=== PATIENT | male | born 1930 | race Caucasian/White ===

== ENCOUNTER 2017-10-31 21:36 | Inpatient (IN) | payer OTHER, MEDICARE ==
[~2017-10-31] VITALS: Ht 177.8 cm; Wt 80.3 kg
[~2017-10-31 21:36] MED LIST: ASPI81TA11 PO; ATOR10TA PO; CO Q100C9 PO; COUM1TAB PO; FLUO10TA PO; PACE200T4 PO; PRIN5TAB PO; TOPR50TA PO
[2017-10-31 22:03] VITALS: BP 151/69; PULSE 60; RESP 16; TEMP 98.2; O2SAT 96
--- NOTE | 2017-10-31 22:08 | PD ---
HPI Chief Complaint: Chest Pain Time Seen by Provider: 22:01 Travel History International Travel<30 days: No Contact w/Intl Traveler<30days: No Traveled to known affect area: No History of Present Illness HPI 87-year-old male with PMH of CAD s/p CABG presents to the ED for evaluation of 5 /10 central chest pain. Onset just before arrival after the patient ate a bowl of ice cream. Lasted 10-30 seconds, resolves spontaneously. Resolved on presentation. He denies associated diaphoresis, nausea, vomiting, shortness of breath, palpitations. He endorses taking a baby aspirin daily. He was administered aspirin by the paramedics en route. He states that prior to this incident he was feeling well. He denies recent history of fever, chills, cold symptoms, abdominal pain, nausea, vomiting, dysuria, weakness. PFSH Past Medical History Anxiety: Yes Cerebrovascular Accident: Yes Coronary Artery Disease: Yes Hypertension: Yes Respiratory: Yes (PE'S) Past Surgical History Appendectomy: Yes Tonsillectomy: Yes Other Surgery: Yes (OPEN HEART) Social History Alcohol Use: No Tobacco Use: No Substance Use: No Allergies-Medications (Allergen,Severity, Reaction): Coded Allergies: No Known Allergies (Unverified Adverse Reaction, Unknown, 10/31/17) Reported Meds & Prescriptions Reported Meds & Active Scripts Active Reported Rapaflo (Silodosin) 8 Mg Cap 8 Mg PO DAILY Lisinopril 10 Mg Tab 10 Mg PO DAILY Atorvastatin (Atorvastatin Calcium) 10 Mg Tab 10 Mg PO HS Aspirin 81 Mg Chew 81 Mg CHEW DAILY Omeprazole 40 Mg Cap 40 Mg PO DAILY Metoprolol Tartrate 25 Mg Tab 25 Mg PO DAILY Review of Systems Except as stated in HPI: all other systems reviewed are Neg Physical Exam Narrative GENERAL: Well-nourished, well-developed white male in no acute distress. SKIN: Focused skin assessment warm/dry. HEAD: Normocephalic. EYES: No scleral icterus. No injection or drainage. NECK: Supple, trachea midline. No JVD or lymphadenopathy. CARDIOVASCULAR: Regular rate and rhythm without murmurs, gallops, or rubs. RESPIRATORY: Breath sounds clear and equal bilaterally. No accessory muscle use. GASTROINTESTINAL: Abdomen soft, non-tender, nondistended. Active bowel sounds. MUSCULOSKELETAL: No cyanosis, or edema. BACK: Nontender without obvious deformity. No CVA tenderness. Data Data Last Documented VS Vital Signs Date Time Temp Pulse Resp B/P (MAP) Pulse Ox O2 Delivery O2 Flow Rate FiO2 10/31/17 22:05 60 18 96 Nasal Cannula 2.00 10/31/17 22:03 98.2 151/69 (96) Orders Orders Electrocardiogram (10/31/17 22:06) B-Type Natriuretic Peptide (10/31/17 22:06) Ckmb (Isoenzyme) Profile (10/31/17 22:06) Complete Blood Count With Diff (10/31/17 22:06) Comprehensive Metabolic Panel (10/31/17 22:06) Magnesium (Mg) (10/31/17 22:06) Prothrombin Time / Inr (Pt) (10/31/17 22:06) Act Partial Throm Time (Ptt) (10/31/17 22:06) Troponin I (10/31/17 22:06) Ecg Monitoring (10/31/17 22:06) Bilateral Bp Monitoring (10/31/17 22:06) Iv Access Insert/Monitor (10/31/17 22:) Oximetry (10/31/17 22:06) Oxygen Administration (10/31/17 22:06) Sodium Chloride 0.9% Flush (Ns Flush) (10/31/17 22:15) Chest, Pa & Lat (10/31/17 22:06) MDM Medical Decision Making Medical Screen Exam Complete: Yes Emergency Medical Condition: Yes Differential Diagnosis chest pain versus GERD versus ACS versus other Narrative Course 87-year-old male with PMH of CAD s/p CABG presents to the ED for evaluation of 5 /10 central chest pain. Onset just before arrival after the patient ate a bowl of ice cream. Lasted 10-30 seconds, resolved spontaneously. NO associated diaphoresis, nausea, vomiting, shortness of breath, palpitations. He endorses taking a baby aspirin daily. He was administered aspirin by the paramedics en route. He states that prior to this incident he was feeling well. Pulse 60, BP 151/69 presentation. On exam this is a nontoxic-appearing white male in no acute distress. No appreciable M/R/G. No tenderness to palpation over the precordium. Abdomen soft and nontender. No lower extremity edema. EKG, radiological studies, lab work ordered and pending. The patient is signed out to Dr. Fuchs at end of shift. Please see his note for disposition. Niharika Mc Oct 31, 2017 22:07
[2017-10-31] MEDS ORDERED: ASPI-516 CHEW (22:13)
[2017-10-31] MEDS ORDERED: LISI10TA3 PO (22:13)
[2017-10-31] MEDS ORDERED: RAPA8CAP PO (22:13)
[2017-10-31] MEDS ORDERED: ATOR10TA15 PO (22:13)
[2017-10-31] MEDS ORDERED: OMEP40CA2 PO (22:13)
[2017-10-31] MEDS ORDERED: METO25TA3 PO (22:13)
[2017-10-31] MEDS ORDERED: ASPIRIN 81 MG CHEW TAB PO ONE (22:15)
[2017-10-31] MEDS ORDERED: SODIUM CHLORIDE 0.9% FLUSH 10 ML FLUSH IVF PRN (22:15)
--- NOTE | 2017-10-31 22:50 | RADRPT ---
EXAM DATE/TIME: 10/31/2017 22:32 [facility] COMPARISON: No previous studies available for comparison. INDICATIONS : Chest pain and short of breath. MEDICAL HISTORY : None. SURGICAL HISTORY : None. ENCOUNTER: Initial ACUITY: 1 day PAIN SCORE: 5/10 LOCATION: Bilateral chest FINDINGS: PA and lateral views of the chest demonstrate the lungs to be symmetrically aerated without evidence of mass, infiltrate or effusion. No evidence of pneumothorax. The cardiomediastinal contours are un remarkable. Osseous structures are intact. Median sternotomy and CABG with 6 intact sternal wire dave tures. CONCLUSION: The lungs are clear. Benitez Gates MD on October 31, 2017 at 22:48 Board Certified Radiologist. This report was verified electronically.
[2017-10-31 23:57] LABS: AUTOMATED NEUTROPHIL # 8.9 TH/MM3 (1.8-7.7); BASOPHIL % 0.3 % (0.0-2.0); EOSINOPHIL # 0.1 TH/MM3 (0-0.4); EOSINOPHIL % 1.1 % (0.0-4.0); HEMATOCRIT 38.8 % (39.0-51.0); HEMOGLOBIN 13.1 GM/DL (13.0-17.0); LYMPH % 9.5 % (9.0-44.0); MEAN CORPUSCULAR HEMOGLOBIN 31.1 PG (27.0-34.0); MEAN CORPUSCULAR HGB CONC 33.8 % (32.0-36.0); MEAN PLATELET VOLUME 9.1 FL (7.0-11.0); MONOCYTE # 0.4 TH/MM3 (0-0.9); NEUT % 85.1 % (16.0-70.0); PLATELET COUNT 143 TH/MM3 (150-450); RED BLOOD COUNT 4.21 MIL/MM3 (4.50-5.90); RED CELL DISTRIBUTION WIDTH 14.7 % (11.6-17.2); WHITE BLOOD COUNT 10.5 TH/MM3 (4.0-11.0)
[2017-11-01 00:09] LABS: ALBUMIN 3.2 GM/DL (3.4-5.0); ALT (GPT) 400 U/L (12-78); AST (GOT) 595 U/L (15-37); BICARBONATE 26.6 MEQ/L (21.0-32.0); BLOOD UREA NITROGEN 20 MG/DL (7-18); CHLORIDE 107 MEQ/L (98-107); CREATININE 1.31 MG/DL (0.60-1.30); GLOMERULAR FILTRATION RATE 52 ML/MIN (>89); GLUCOSE,RANDOM 107 MG/DL (74-106); MAGNESIUM 2.1 MG/DL (1.5-2.5); SODIUM (NA) 141 MEQ/L (136-145)
[2017-11-01 00:13] LABS: ALKALINE PHOSPHATASE 172 U/L (45-117); TOTAL PROTEIN 7.2 GM/DL (6.4-8.2); TROPONIN I 0.03 NG/ML (0.02-0.05)
[2017-11-01 00:23] LABS: INTERNATIONAL NORMALIZED RATIO 1.1 RATIO; PROTHROMBIN TIME - PATIENT 10.7 SEC (9.8-11.6)
--- NOTE | 2017-11-01 01:50 | RADRPT ---
EXAM DATE/TIME: 11/01/2017 01:35 [facility] COMPARISON: No previous studies available for comparison. INDICATIONS : Nausea. ORAL CONTRAST: No oral contrast ingested. RADIATION DOSE: 8.82 CTDIvol (mGy) MEDICAL HISTORY : Cardiovascular disease. Hypertension. SURGICAL HISTORY : CABG Appendectomy. ENCOUNTER: Initial ACUITY: 1 day PAIN SCALE: 0/10 LOCATION: Bilateral abdomen TECHNIQUE: Volumetric scanning of the abdomen and pelvis was performed. Using automated exposure control and ad justment of the mA and/or kV according to patient size, radiation dose was kept as low as reasonably achievable to obtain optimal diagnostic quality images. DICOM format image data is available electro nically for review and comparison. FINDINGS: LOWER LUNGS: There is dependent atelectasis at the lung bases. A partially calcified 4 mm pulmonary nodule is pres ent in the right lower lobe. LIVER: Homogeneous density without lesion. There is no dilation of the biliary tree. No calcified gallston es. SPLEEN: Normal size without lesion. PANCREAS: Within normal limits. KIDNEYS: Right kidney is atrophic. There is no hydronephrosis, stone, or mass. ADRENAL GLANDS: Within normal limits. VASCULAR: There is severe atherosclerotic disease with severe calcification in the proximal renal arteries bila terally. Coronary artery calcification is present along with severe calcification of the mitral annul us. BOWEL/MESENTERY: The stomach, small bowel, and colon demonstrate no acute abnormality. A diverticulum arises from the proximal fourth portion of the duodenum. There is sigmoid diverticulosis. Prior surgery has been per formed in the ascending colon with area of anastomosis have a normal appearance. There is no free int raperitoneal air or fluid. ABDOMINAL WALL: No acute abnormality. RETROPERITONEUM: There is no lymphadenopathy. BLADDER: No wall thickening or mass. REPRODUCTIVE: Prostate gland is enlarged. INGUINAL: There is no lymphadenopathy or hernia. MUSCULOSKELETAL: There are degenerative changes of the lumbar spine with mild scoliosis. CONCLUSION: 1. No acute finding is identified to explain the clinical symptoms. 2. Nonacute findings include small hiatal hernia, atrophic right kidney, sigmoid diverticulosis, and severe atherosclerotic disease and coronary artery calcification. 3. There is a 4 mm pulmonary nodule in the right lower lobe. Oracio Medrano MD on November 01, 2017 at 1:43 Board Certified Radiologist. This report was verified electronically.
[2017-11-01 02:05] VITALS: BP 165/77; PULSE 65; RESP 18; O2SAT 98
--- NOTE | 2017-11-01 03:29 | RADRPT ---
EXAM DATE/TIME: 11/01/2017 03:12 [facility] COMPARISON: No previous studies available for comparison. INDICATIONS : Syncope. RADIATION DOSE: 66.34 CTDIvol (mGy) MEDICAL HISTORY : Hypertension. Cardiovascular disease Stroke. SURGICAL HISTORY : Appendectomy. ENCOUNTER: Initial ACUITY: 1 day PAIN SCALE: 0/10 LOCATION: cranial TECHNIQUE: Multiple contiguous axial images were obtained of the head. Using automated exposure control and adj ustment of the mA and/or kV according to patient size, radiation dose was kept as low as reasonably a chievable to obtain optimal diagnostic quality images. DICOM format image data is available electro nically for review and comparison. FINDINGS: CEREBRUM: There is generalized atrophy. Ventricles are normal in size given degree of atrophy. There is severe periventricular white matter low attenuation. Encephalomalacia is present in the right occipital lobe . No evidence of midline shift, mass lesion, hemorrhage or acute infarction. No extra-axial fluid c ollections are seen. POSTERIOR FOSSA: The cerebellum and brainstem demonstrate no acute finding. The 4th ventricle is midline. The cerebe llopontine angle is unremarkable. EXTRACRANIAL: Visualized sinuses are clear. SKULL: The calvaria is intact. No evidence of skull fracture. CONCLUSION: 1. No acute intracranial abnormality is identified. 2. Chronic changes include generalized atrophy and severe periventricular white matter low attenuatio n characteristic of chronic microvascular ischemia. There is encephalomalacia in the right occipital lobe. Oracio Medrano MD on November 01, 2017 at 3:25 Board Certified Radiologist. This report was verified electronically.
[2017-11-01] MEDS ORDERED: HEPARIN-D5W 25,000 U/250 ML 250 ML IV PRN (04:00)
[2017-11-01] MEDS ORDERED: ONDANSETRON HCL 4 MG/2 ML VIAL IV PUSH PRN (04:00)
[2017-11-01] MEDS ORDERED: SODIUM CHLORIDE 0.9% FLUSH 10 ML FLUSH IV FLUSH PRN (04:00)
[2017-11-01] MEDS ORDERED: ACETAMINOPHEN 325 MG TAB PO PRN (04:00)
[2017-11-01] MEDS ORDERED: HEPARIN SODIUM - IV 10,000 UNITS/10 ML VIAL IV PUSH ONE (04:00)
[2017-11-01] MEDS ORDERED: MORPHINE SULFATE 2 MG/ML INJ IV PUSH PRN (04:15)
--- NOTE | 2017-11-01 04:17 | HHI.HP ---
[facility] Unknown Admission Diagnosis near syncope and LFT abnl Diagnoses: Travel History International Travel<30 Days: No Contact w/Intl Traveler <30 Da: No Traveled to Known Affected Are: No History of Present Illness 87-year-old male with a past medical history significant for coronary artery disease, hypertension, hyperlipidemia, GERD and anxiety presents to the emergency department via EMS for evaluation of confusion, agitation and chest pain. The patient's states that the patient awoke from sleep and requested a cup of coffee. He then returned to his bedroom where he oscillated between the bed in the chair in an agitated fashion. During that time the patient's reports that he was hyperventilating and appeared to be confused. He had a 2-3 second episode of shaking throughout his entire body that was not followed by confusion. The patient's daughter reports that he return to baseline within 5 minutes. Upon further questioning, the patient states that he had a 20 minute episode of substernal, nonradiating chest pain/ pressure. He states that his chest pain is now resolved. He endorses accompanying shortness of breath. Denies nausea/vomiting/diarrhea. Denies any lateralizing signs/symptoms. Review of Systems Except as stated in HPI: all other systems reviewed are Neg Past Family Social History Past Medical History CAD Hypertension Hyperlipidemia GERD Anxiety History of CVA during CABG Past Surgical History CABG 3 AVR Reported Medications Reported Meds & Active Scripts Active Reported Rapaflo (Silodosin) 8 Mg Cap 8 Mg PO DAILY Lisinopril 10 Mg Tab 10 Mg PO DAILY Atorvastatin (Atorvastatin Calcium) 10 Mg Tab 10 Mg PO HS Aspirin 81 Mg Chew 81 Mg CHEW DAILY Omeprazole 40 Mg Cap 40 Mg PO DAILY Metoprolol Tartrate 25 Mg Tab 25 Mg PO DAILY Allergies: Coded Allergies: No Known Allergies (Unverified Allergy, Unknown, 11/01/17) Family History Negative for CAD/DM Social History Rare alcohol. Denies tobacco. Denies illicit drugs. Physical Exam Vital Signs Vital Signs Date Time Temp Pulse Resp B/P (MAP) Pulse Ox O2 Delivery O2 Flow Rate FiO2 3/8/18 02:05 65 18 165/77 (106) 98 Nasal Cannula 2.00 10/31/17 22:05 60 18 96 Nasal Cannula 2.00 10/31/17 22:03 98.2 60 16 151/69 (96) 96 Physical Exam GENERAL: male sitting up in bed SKIN: No rashes, ecchymoses or lesions. Cool and dry. HEAD: Atraumatic. Normocephalic. No temporal or scalp tenderness. EYES: Pupils equal round and reactive. Extraocular motions intact. No scleral icterus. No injection or drainage. ENT: Nose without bleeding, purulent drainage or septal hematoma. Throat without erythema, tonsillar hypertrophy or exudate. Uvula midline. Airway patent. NECK: Trachea midline. No JVD or lymphadenopathy. Supple, nontender, no meningeal signs. CARDIOVASCULAR: Regular rate and rhythm without murmurs, gallops, or rubs. RESPIRATORY: Clear to auscultation. Breath sounds equal bilaterally. No wheezes , rales, or rhonchi. GASTROINTESTINAL: Abdomen soft, non-tender, nondistended. No hepato-splenomegaly , or palpable masses. No guarding. MUSCULOSKELETAL: Extremities without clubbing, cyanosis, or edema. No joint tenderness, effusion, or edema noted. No calf tenderness. NEUROLOGICAL: Awake and alert. Cranial nerves II through XII intact. Motor and sensory grossly within normal limits. Normal speech. Laboratory Laboratory Tests Test 10/31/17 22:45 11/01/17 02:00 White Blood Count 10.5 Red Blood Count 4.21 Hemoglobin 13.1 Hematocrit 38.8 Mean Corpuscular Volume 92.0 Mean Corpuscular Hemoglobin 31.1 Mean Corpuscular Hemoglobin Concent 33.8 Red Cell Distribution Width 14.7 Platelet Count 143 Mean Platelet Volume 9.1 Neutrophils (%) (Auto) 85.1 Lymphocytes (%) (Auto) 9.5 Monocytes (%) (Auto) 4.0 Eosinophils (%) (Auto) 1.1 Basophils (%) (Auto) 0.3 Neutrophils # (Auto) 8.9 Lymphocytes # (Auto) 1.0 Monocytes # (Auto) 0.4 Eosinophils # (Auto) 0.1 Basophils # (Auto) 0.0 CBC Comment DIFF FINAL Differential Comment Prothrombin Time 10.7 Prothromb Time International Ratio 1.1 Activated Partial Thromboplast Time 21.5 Blood Urea Nitrogen 20 Creatinine 1.31 Random Glucose 107 Total Protein 7.2 Albumin 3.2 Calcium Level 8.0 Magnesium Level 2.1 Alkaline Phosphatase 172 Aspartate Amino Transf (AST/SGOT) 595 Alanine Aminotransferase (ALT/SGPT) 400 Total Bilirubin 1.0 Sodium Level 141 Potassium Level 3.9 Chloride Level 107 Carbon Dioxide Level 26.6 Anion Gap 7 Estimat Glomerular Filtration Rate 52 Total Creatine Kinase 70 Troponin I 0.03 0.06 B-Type Natriuretic Peptide 235 Result Diagram: 10/31/17224410/31/172244 Caprini VTE Risk Assessment Caprini VTE Risk Assessment: Mod/High Risk (score >= 2) Caprini Risk Assessment Model Point Value = 1 Point Value = 2 Point Value = 3 Point Value = 5 Age 41-60 Minor surgery BMI > 25 kg/m2 Swollen legs Varicose veins or History of unexplained or recurrent spontaneous Oral contraceptives or hormone replacement Sepsis (< 1 month) Serious lung disease, including pneumonia (< 1 month) Abnormal pulmonary function Acute myocardial infarction Congestive heart failure (< 1 month) History of inflammatory bowel disease Medical patient at bed rest Age 61-74 Arthroscopic surgery Major open surgery (> 45 min) Laparoscopic surgery (> 45 min) Malignancy Confined to bed (> 72 hours) Immobilizing plaster cast Central venous access Age >= 75 History of VTE Family history of VTE Factor V Leiden Prothrombin [id number] Lupus anticoagulant Anticardiolipin antibodies Elevated serum homocysteine Heparin-induced thrombocytopenia Other congenital or acquired thrombophilia Stroke (< 1 month) Elective arthroplasty Hip, pelvis, or leg fracture Acute spinal cord injury (< 1 month) Prophylaxis Regimen Total Risk Factor Score Risk Level Prophylaxis Regimen 0-1 Low Early ambulation 2 Moderate Order ONE of the following: *Sequential Compression Device (SCD) *Heparin 5000 units SQ BID 3-4 Higher Order ONE of the following medications: *Heparin 5000 units SQ TID *Enoxaparin/Lovenox 40 mg SQ daily (WT < 150 kg, CrCl > 30 mL/min) *Enoxaparin/Lovenox 30 mg SQ daily (WT < 150 kg, CrCl > 10-29 mL/min) *Enoxaparin/Lovenox 30 mg SQ BID (WT < 150 kg, CrCl > 30 mL/min) AND/OR *Sequential Compression Device (SCD) 5 or more Highest Order ONE of the following medications: *Heparin 5000 units SQ TID (Preferred with Epidurals) *Enoxaparin/Lovenox 40 mg SQ daily (WT < 150 kg, CrCl > 30 mL/min) *Enoxaparin/Lovenox 30 mg SQ daily (WT < 150 kg, CrCl > 10-29 mL/min) *Enoxaparin/Lovenox 30 mg SQ BID (WT < 150 kg, CrCl > 30 mL/min) AND *Sequential Compression Device (SCD) Assessment and Plan Assessment and Plan Assessment/plan: 1. NSTEMI Initial troponin 0.03, repeat 0.06 Patient with 20 minute episode of chest pain EKG Heparin bolus and drip Serial troponin/EKGs Cardiology consulted, appreciate recommendations Morphine Continue home beta adrián 2. Transaminitis Patient with elevated LFTs, no previous history CT of the abdomen/pelvis with no acute findings or cirrhosis/fatty liver Liver ultrasound pending Hepatitis profile pending Repeat CMP in the a.m. 3. Agitation/confusion Likely related to NSTEMI CT head negative for acute process Monitor Vision with some confusion at baseline 4. CONNIE Creatinine 1.31, no baseline for comparison Likely chronic component Monitor renal function 5. Hypertension/hyperlipidemia/GERD Continue home medications FEN NPO Electrolytes: Monitor and replete when necessary Heparin ggt Physician Certification 2 Midnight Certification Type: Admission for Inpatient Services Order for Inpatient Services The services are ordered in accordance with Medicare regulations or non- Medicare payer requirements, as applicable. In the case of services not specified as inpatient-only, they are appropriately provided as inpatient services in accordance with the 2-midnight benchmark. Estimated LOS (days): 2 2 days is the estimated time the patient will need to remain in the hospital, assuming treatment plan goals are met and no additional complications. Post-Hospital Plan: Not yet determined Nhung Gamble MD Nov 01, 2017 04:17
--- NOTE | 2017-11-01 04:29 | PD ---
Physical Exam Date Seen by Provider: Oct 31, 2017 Time Seen by Provider: 23:00 Narrative Patient is signed out to me by the prior provider I reviewed patient's labs patient's urine all are within normal limits however patient has an elevation of his LFTs which are very significant for 400 & [address] to search for a cause of his elevated LFTs but at scan does not show any cirrhosis does not show any gallstones this does not show any gallbladder disease. Patient's troponin is 0.03 I admit him to the hospitalist group for further evaluation of his LFTs along with his history of having had a stroke not too long ago post CABG 3 years ago. Tonight it describes a sensation of pain in his chest followed by a brief syncopal episode while sitting in the bed according to his . In the ER patient has recovered and has no symptoms at this time however patient is admitted for further evaluation of his LFTs chest pain is brief syncopal episode Data Data Last Documented VS Vital Signs Date Time Temp Pulse Resp B/P (MAP) Pulse Ox O2 Delivery O2 Flow Rate FiO2 11/01/17 02:05 65 18 165/77 (106) 98 Nasal Cannula 2.00 10/31/17 22:03 98.2 Orders Orders Electrocardiogram (10/31/17 22:06) B-Type Natriuretic Peptide (10/31/17 22:06) Ckmb (Isoenzyme) Profile (10/31/17 22:06) Complete Blood Count With Diff (10/31/17 22:06) Comprehensive Metabolic Panel (10/31/17 22:06) Magnesium (Mg) (10/31/17 22:06) Prothrombin Time / Inr (Pt) (10/31/17 22:06) Act Partial Throm Time (Ptt) (10/31/17 22:06) Troponin I (10/31/17 22:06) Ecg Monitoring (10/31/17 22:06) Bilateral Bp Monitoring (10/31/17 22:06) Iv Access Insert/Monitor (10/31/17 22:06) Oximetry (10/31/17 22:06) Oxygen Administration (10/31/17 22:06) Sodium Chloride 0.9% Flush (Ns Flush) (10/31/17 22:15) Chest, Pa & Lat (10/31/17 22:06) Ct Abd/Pel W/O Iv Contrast (11/01/17 ) Aspirin Chew (Aspirin Chew) (11/01/17 09:00) Troponin I (11/01/17 02:33) Ct Brain W/O Iv Contrast(Rout) (11/01/17 ) Us Abdomen Gallbladder (11/01/17 ) Admit Order (Ed Use Only) (11/01/17 02:33) Labs Laboratory Tests Test 10/31/17 22:45 11/01/17 02:00 White Blood Count 10.5 TH/MM3 Red Blood Count 4.21 MIL/MM3 Hemoglobin 13.1 GM/DL Hematocrit 38.8 % Mean Corpuscular Volume 92.0 FL Mean Corpuscular Hemoglobin 31.1 PG Mean Corpuscular Hemoglobin Concent 33.8 % Red Cell Distribution Width 14.7 % Platelet Count 143 TH/MM3 Mean Platelet Volume 9.1 FL Neutrophils (%) (Auto) 85.1 % Lymphocytes (%) (Auto) 9.5 % Monocytes (%) (Auto) 4.0 % Eosinophils (%) (Auto) 1.1 % Basophils (%) (Auto) 0.3 % Neutrophils # (Auto) 8.9 TH/MM3 Lymphocytes # (Auto) 1.0 TH/MM3 Monocytes # (Auto) 0.4 TH/MM3 Eosinophils # (Auto) 0.1 TH/MM3 Basophils # (Auto) 0.0 TH/MM3 CBC Comment DIFF FINAL Differential Comment Prothrombin Time 10.7 SEC Prothromb Time International Ratio 1.1 RATIO Activated Partial Thromboplast Time 21.5 SEC Blood Urea Nitrogen 20 MG/DL Creatinine 1.31 MG/DL Random Glucose 107 MG/DL Total Protein 7.2 GM/DL Albumin 3.2 GM/DL Calcium Level 8.0 MG/DL Magnesium Level 2.1 MG/DL Alkaline Phosphatase 172 U/L Aspartate Amino Transf (AST/SGOT) 595 U/L Alanine Aminotransferase (ALT/SGPT) 400 U/L Total Bilirubin 1.0 MG/DL Sodium Level 141 MEQ/L Potassium Level 3.9 MEQ/L Chloride Level 107 MEQ/L Carbon Dioxide Level 26.6 MEQ/L Anion Gap 7 MEQ/L Estimat Glomerular Filtration Rate 52 ML/MIN Total Creatine Kinase 70 U/L Troponin I 0.03 NG/ML 0.06 NG/ML B-Type Natriuretic Peptide 235 PG/ML MDM Supervised Visit with RENATO: Yes Differential Diagnosis Differential diagnosis includes GERD versus cholecystitis versus SD versus esophagitis versus pancreatitis versus liver disease Narrative Course Patient is worked up for his liver with a CAT scan no findings to explain his LFTs elevated his cardiac enzymes are 0.03 they'll be repeated 3 hour and 6 hour he is admitted. Been given 2 baby aspirins to chew and repeat troponin is due to 3 hours after the first he is admitted to telemetry Diagnosis Primary Impression: Elevated liver enzymes Additional Impression: Syncopal episodes Qualified Codes: R55 - Syncope and collapse Admitting Information Admitting Physician Requests: Observation Ever Fuchs MD Nov 01, 2017 04:29
[2017-11-01 04:56] VITALS: BP 150/73; PULSE 69; RESP 18; O2SAT 98
[2017-11-01 05:21] LABS: PROTHROMBIN TIME - PATIENT 10.6 SEC (9.8-11.6)
[2017-11-01 05:41] LABS: TROPONIN I 0.07 NG/ML (0.02-0.05)
[2017-11-01 07:59] VITALS: BP 189/88; PULSE 80; RESP 17; TEMP 98.1; O2SAT 98
[2017-11-01] MEDS: SODIUM CHLORIDE 0.9% FLUSH 10 ML FLUSH IV FLUSH SCH ×2 (08:05→21:03)
[2017-11-01] MEDS ORDERED: LISINOPRIL 10 MG TAB PO SCH ×2 (09:00→21:00)
[2017-11-01] MEDS ORDERED: METOPROLOL TARTRATE 25 MG TAB PO SCH (09:00)
[2017-11-01] MEDS ORDERED: TAMSULOSIN HCL 0.4 MG CAP PO SCH ×2 (09:00→21:00)
--- NOTE | 2017-11-01 09:17 | HHI.PR ---
Subjective Remarks Follow up NSTEMI, elevated LFTs. Patient had 15-20 minute episode of chest pressure last night. No chest pain/pressure at this time. Denies dyspnea. States that he feels much better. Objective Vitals Vital Signs Date Time Temp Pulse Resp B/P (MAP) Pulse Ox O2 Delivery O2 Flow Rate FiO2 11/01/17 07:59 80 17 98 Room Air 11/01/17 07:59 98.1 80 17 189/88 (121) 98 Room Air 11/01/17 04:56 69 18 150/73 (98) 98 Room Air 11/01/17 02:05 65 18 165/77 (106) 98 Nasal Cannula 2.00 10/31/17 22:05 60 18 96 Nasal Cannula 2.00 10/31/17 22:03 98.2 60 16 151/69 (96) 96 Result Diagram: 10/31/17 2245 10/31/17 2245 Imaging Last Impressions Head CT 11/01/17 0000 Signed Impressions: Service Date/Time: October 03:12 - CONCLUSION: 1. No acute intracranial abnormality is identified. 2. Chronic changes include generalized atrophy and severe periventricular white matter low attenuation characteristic of chronic microvascular ischemia. There is encephalomalacia in the right occipital lobe. Oracio Medrano MD Abdomen/Pelvis CT 11/01/17 0000 Signed Impressions: Service Date/Time: October 01:35 - CONCLUSION: 1. No acute finding is identified to explain the clinical symptoms. 2. Nonacute findings include small hiatal hernia, atrophic right kidney, sigmoid diverticulosis, and severe atherosclerotic disease and coronary artery calcification. 3. There is a 4 mm pulmonary nodule in the right lower lobe. Oracio Medrano MD Chest X-Ray 10/31/176 Signed Impressions: Service Date/Time: Tuesday, October 31, 2017 22:32 - CONCLUSION: The lungs are clear. Benitez Gates MD Objective Remarks General: Elderly male in no acute distress. Heart: Regular rate and rhythm. 1/6 murmur. Lungs: Clear to auscultation bilaterally. No wheezes, rales, or rhonchi. Breathing is nonlabored. Abdomen: Soft, nontender, nondistended. Extremities: No lower extremity edema. Psych: Alert, somewhat confused. Procedures None Urinary Catheter: No Vascular Central Line Catheter: No A/P Assessment and Plan 1. NSTEMI: Troponin trending up. Patient had a 15-20 minute episode of chest pressure, which resolved spontaneously. No active chest pain. Patient has been evaluated by cardiology. Nuclear stress test ordered. Continue aspirin, beta-adrián. On heparin drip. 2. Transaminitis: Patient has elevated LFTs. CT of the abdomen and pelvis is negative. Liver ultrasound pending. 3. Agitation/confusion: Likely related to non-ST elevation [place]. CT head negative. Patient apparently has some baseline confusion. 4. Acute kidney injury: No prior labs available for comparison. Monitor BUN and creatinine. 5. Hypertension: Continue home medications. 6. GERD: PPI. 7. DVT prophylaxis: Heparin drip. The patient's is at bedside and provides much of the history. 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 Reinier Cooley MD Nov 01, 2017 09:17
--- NOTE | 2017-11-01 09:21 | RADRPT ---
EXAM DATE/TIME: 11/01/2017 08:06 [facility] COMPARISON: No previous studies available for comparison. INDICATIONS : Gallstones. MEDICAL HISTORY : Hypertension. CVA. CAD. SURGICAL HISTORY : Appendectomy. Laminectomy. CABG. ENCOUNTER: Subsequent ACUITY: 1 day PAIN SCORE: 0/10 LOCATION: Right upper quadrant MEASUREMENTS: LIVER: 16.2 cm length COMMON DUCT: 5 mm RIGHT KIDNEY: 8.2 x 3.2 x 3.3 cm FINDINGS: LIVER: Normal echotexture without focal lesion or ductal dilatation. COMMON DUCT: No intraluminal mass or stone visualized. GALLBLADDER: Small non-shadowing non-mobile echogenic foci in the gallbladder neck. Gallbladder otherwise appears unremarkable without significant abnormal thickening pericholecystic fluid or sonographic Santamaria sign . PANCREAS: Partially obscured. RIGHT KIDNEY: Small size with diffuse cortical thinning. No evidence of hydronephrosis, stone, or mass. CONCLUSION: 1. Small gallbladder polyps versus non-shadowing adherent stones in the gallbladder neck. Gallbladder otherwise appears unremarkable by ultrasound. 2. Atrophic appearance of the right kidney similar to recent CT exam. Mejia Hardin MD on November 01, 2017 at 9:15 Board Certified Radiologist. This report was verified electronically.
[2017-11-01] MEDS ORDERED: PILL SPLITTER OTHER PRN (09:30)
--- NOTE | 2017-11-01 09:31 | MB ---
cc: Rafael De La Cruz MD DATE OF CONSULT: REASON FOR CONSULTATION: Chest pain. HISTORY OF PRESENT ILLNESS: The patient is an 87-year-old white male with a history of coronary artery disease, CVA, hypertension, pulmonary embolism who presented to the hospital with chest discomfort. After eating a bowl of ice cream, he developed band-like chest discomfort described as "pressure" without associated shortness of breath, nausea, or diaphoresis. The chest discomfort lasted about 30 minutes. He denies any other chest pains. He also denies pleurisy, dizziness, syncope, near-syncope, palpitations, pedal edema, paroxysmal nocturnal dyspnea, recent flu symptoms. PAST MEDICAL HISTORY: 1. Remote history of pulmonary embolism. 2. Hypertension. 3. CVA. 4. Coronary artery disease, status post 3-vessel bypass surgery a few years ago in [place], [place]. 5. History of bioprosthetic aortic valve replacement at the time of his bypass surgery. PAST SURGICAL HISTORY: 1. Tonsillectomy. 2. Appendectomy. 3. Coronary artery bypass grafting. CARDIAC MEDICATIONS AT HOME: Metoprolol tartrate 25 mg daily, aspirin 81 mg daily, atorvastatin 10 mg at bedtime, lisinopril 10 mg daily. ALLERGIES: NO KNOWN DRUG ALLERGIES. FAMILY HISTORY: Noncontributory. SOCIAL HISTORY: The patient denies any history of alcohol or tobacco abuse. REVIEW OF SYSTEMS: As in the history of present illness, otherwise negative or noncontributory. He also denies headache, abdominal pain, melena, dyspepsia, bright red blood per rectum, fevers, cough. PHYSICAL EXAMINATION: VITAL SIGNS: His blood pressure is 189/88 with a pulse of 80, respirations 17. GENERAL: He is a well-developed, well-nourished white male, in no acute distress. HEENT: Jugular venous pressure is normal. Carotid pulses are 2+ bilaterally and without bruits. CHEST: Reveals clear lung [place]. CARDIAC: He has a regular rhythm and rate with a grade II/ systolic ejection murmur heard best at the base of the heart. The S2 heart sound is normal. No gallop is audible. ABDOMEN: He has a soft, nontender abdomen. Bowel sounds are present. There is no definite hepatosplenomegaly. EXTREMITIES: Reveal no clubbing, cyanosis, or edema. LABORATORY DATA: Potassium 3.9, BUN 20, creatinine 1.31, AST 595, ALT 400, CK 70. Troponin 0.07. INR 1.0. WBC 10.5, hemoglobin 13.1, platelets 143. Chest x-ray shows no acute disease. EKG shows sinus bradycardia, voltage criteria for left ventricular hypertrophy, nonspecific T-wave abnormalities. IMPRESSION: Somewhat atypical chest pain in this 87-year-old white male with a history of coronary artery disease, status post bypass surgery a few years ago, history of cerebrovascular accident, history of pulmonary embolism, hypertension, hyperlipidemia, aortic valve replacement. CK is negative for myocardial infarction. Electrocardiogram shows nonspecific changes. The troponin levels are only minimally elevated, this in the sitting of some renal insufficiency. The patient denies any other chest pains except for that single episode last night. Clinical suspicion for pulmonary embolism is low. RECOMMENDATIONS: 1. Check a Lexiscan nuclear stress test. Unless extensive or severe ischemia is demonstrated, would recommend medical therapy. 2. Continue his usual home cardiac regimen except would stop his statin in light of his abnormal liver function tests. Rafael De La Cruz MD G[facility]/TI , 08:50 AM , 09:29 AM MTDD
[2017-11-01] MEDS ORDERED: REGADENOSON INJ 0.4 MG/5 ML SYR ONE (10:10)
[2017-11-01] MEDS: ASPIRIN 81 MG CHEW TAB CHEW SCH (11:43)
[2017-11-01] MEDS: METOPROLOL SUCCINATE 25 MG EXTENDED RELEASE TAB PO SCH (11:44)
[2017-11-01] MEDS: PANTOPRAZOLE SOD 40 MG DELAYED RELEASE TAB PO SCH (11:44)
--- NOTE | 2017-11-01 11:46 | RADRPT ---
EXAM DATE/TIME: 11/01/2017 09:40 [facility] COMPARISON: No previous studies available for comparison. INDICATIONS : Mid chest pain for one day. Coronary artery disease. DOSE: 25.5 mCi Tc99m Myoview at stress. 8.8 mCi Tc99m Myoview at rest. 0.4 mg Lexiscan STRESS SYMPTOMS: Shortness of breath. EJECTION FRACTION: 56% MEDICAL HISTORY : Hypertension. Gastroesophageal reflux disease. SURGICAL HISTORY : CABG ENCOUNTER: Initial ACUITY: 1 day PAIN SCALE: 5/10 LOCATION: Midsternal chest TECHNIQUE: The patient underwent pharmacologic stress with infusion of prescribed dose. Continuous ECG tracing was monitored during stress. Gated SPECT imaging was performed after stress and conventional SPECT i maging was performed at rest. The examination was performed on a SPECT/CT scanner, both attenuation and non-corrected datasets were reviewed. FINDINGS: DISTRIBUTION: The maximum perfused segment at stress is in the lateral wall. PERFUSION STUDY: The pattern of perfusion at stress is within normal limits. GATED STUDY: There is intact wall motion and thickening without hypokinetic or dyskinetic segments. CONCLUSION: Unremarkable myocardial perfusion exam RISK CATEGORY: Low López Gomez MD on November 01, 2017 at 11:44 Board Certified Radiologist. This report was verified electronically.
[2017-11-01 12:59] VITALS: BP 176/86; PULSE 72; RESP 15; TEMP 97.9; O2SAT 94
--- NOTE | 2017-11-01 13:04 | PD.CONS ---
HPI History of Present Illness This is a 87 year old male with hx CVA, colon ca s/p partial colectomy, CAD s/p aortic valve replacement and CABG who presented to ER after an episode of feeling cold, shivering, chest tightness. He has had a negative stress test. GI has been consulted for elevated LFTs. Denies abd pain, n/v, blood stool, black tarry stool, weight loss, jaundice. Denies hx liver problems. Denies significant ETOH consumption. He was taking atorvastatin. Had colonoscopy in [place] 5 y ago and no abnormal findings. He had EGD 1 y ago and no abnormal findings. Hx obtained primarily from EMR and , pt relatively noncontributory. (Maude Valdivia) PFSH Past Medical History CAD Hypertension Hyperlipidemia GERD Anxiety History of CVA during CABG Past Surgical History CABG 3 AVR (Maude Valdivia) Coded Allergies: No Known Allergies (Unverified Allergy, Unknown, 11/01/17) Family History Negative for CAD/DM Social History Rare alcohol. Denies tobacco. Denies illicit drugs. (Maude Valdivia) Review of Systems Constitutional: DENIES: Fever Endocrine: DENIES: Polydipsia Eyes: DENIES: Blurred vision Ears, nose, mouth, throat: DENIES: Hearing loss Respiratory: DENIES: Cough Cardiovascular: DENIES: Chest pain Gastrointestinal: DENIES: Abdominal pain, Black stools, Bloody stools, Nausea, Swelling of Abdomen Genitourinary: DENIES: Hematuria Musculoskeletal: DENIES: Joint Swelling Integumentary: DENIES: Jaundice Hematologic/lymphatic: DENIES: Bruising Immunologic/allergic: DENIES: Eczema Neurologic: DENIES: Headache Psychiatric: DENIES: Confusion (Maude Valdivia) GI Exam Vitals I&O Vital Signs Date Time Temp Pulse Resp B/P (MAP) Pulse Ox O2 Delivery O2 Flow Rate FiO2 11/01/17 07:59 80 17 98 Room Air 11/01/17 07:59 98.1 80 17 189/88 (121) 98 Room Air 11/01/17 04:56 69 18 150/73 (98) 98 Room Air 11/01/17 02:05 65 18 165/77 (106) 98 Nasal Cannula 2.00 10/31/17 22:05 60 18 96 Nasal Cannula 2.00 10/31/17 22:03 98.2 60 16 151/69 (96) 96 Imaging Last Impressions Myocardial Perfusion Scan Nuc Med 11/01/17 0000 Signed Impressions: Service Date/Time: October 09:40 - CONCLUSION: Unremarkable myocardial perfusion exam RISK CATEGORY: Low López Gomez MD Head CT 11/01/17 0000 Signed Impressions: Service Date/Time: October 03:12 - CONCLUSION: 1. No acute intracranial abnormality is identified. 2. Chronic changes include generalized atrophy and severe periventricular white matter low attenuation characteristic of chronic microvascular ischemia. There is encephalomalacia in the right occipital lobe. Oracio Medrano MD Gall Bladder Ultrasound 11/01/17 0000 Signed Impressions: Service Date/Time: October 08:06 - CONCLUSION: 1. Small gallbladder polyps versus non-shadowing adherent stones in the gallbladder neck. Gallbladder otherwise appears unremarkable by ultrasound. 2. Atrophic appearance of the right kidney similar to recent CT exam. Mejia Hardin MD Abdomen/Pelvis CT 11/01/17 0000 Signed Impressions: Service Date/Time: October 01:35 - CONCLUSION: 1. No acute finding is identified to explain the clinical symptoms. 2. Nonacute findings include small hiatal hernia, atrophic right kidney, sigmoid diverticulosis, and severe atherosclerotic disease and coronary artery calcification. 3. There is a 4 mm pulmonary nodule in the right lower lobe. Oracio Medrano MD Chest X-Ray 10/31/176 Signed Impressions: Service Date/Time: Tuesday, October 31, 2017 22:32 - CONCLUSION: The lungs are clear. Benitez Gates MD Laboratory Test 10/31/17 22:45 11/01/17 02:00 11/01/17 04:30 White Blood Count 10.5 TH/MM3 Red Blood Count 4.21 MIL/MM3 Hemoglobin 13.1 GM/DL Hematocrit 38.8 % Mean Corpuscular Volume 92.0 FL Mean Corpuscular Hemoglobin 31.1 PG Mean Corpuscular Hemoglobin Concent 33.8 % Red Cell Distribution Width 14.7 % Platelet Count 143 TH/MM3 Mean Platelet Volume 9.1 FL Neutrophils (%) (Auto) 85.1 % Lymphocytes (%) (Auto) 9.5 % Monocytes (%) (Auto) 4.0 % Eosinophils (%) (Auto) 1.1 % Basophils (%) (Auto) 0.3 % Neutrophils # (Auto) 8.9 TH/MM3 Lymphocytes # (Auto) 1.0 TH/MM3 Monocytes # (Auto) 0.4 TH/MM3 Eosinophils # (Auto) 0.1 TH/MM3 Basophils # (Auto) 0.0 TH/MM3 CBC Comment DIFF FINAL Differential Comment Prothrombin Time 10.7 SEC 10.6 SEC Prothromb Time International Ratio 1.1 RATIO 1.0 RATIO Activated Partial Thromboplast Time 21.5 SEC 19.9 SEC Blood Urea Nitrogen 20 MG/DL Creatinine 1.31 MG/DL Random Glucose 107 MG/DL Total Protein 7.2 GM/DL Albumin 3.2 GM/DL Calcium Level 8.0 MG/DL Magnesium Level 2.1 MG/DL Alkaline Phosphatase 172 U/L Aspartate Amino Transf (AST/SGOT) 595 U/L Alanine Aminotransferase (ALT/SGPT) 400 U/L Total Bilirubin 1.0 MG/DL Sodium Level 141 MEQ/L Potassium Level 3.9 MEQ/L Chloride Level 107 MEQ/L Carbon Dioxide Level 26.6 MEQ/L Anion Gap 7 MEQ/L Estimat Glomerular Filtration Rate 52 ML/MIN Total Creatine Kinase 70 U/L 72 U/L Troponin I 0.03 NG/ML 0.06 NG/ML 0.07 NG/ML B-Type Natriuretic Peptide 235 PG/ML Physical Examination HEENT: PERRL; normocephalic; atraumatic; no jaundice. CHEST: CTA CARDIAC: RRR ABDOMEN: Soft, protuberant, nontender; no hepatosplenomegaly; bowel sounds are present in all four quadrants. EXTREMITIES: No clubbing, cyanosis, or edema. SKIN: Normal; no rash; no jaundice. PUPPET MASTER: oriented to self and place (Maude Valdivia) Assessment and Plan Plan ASSESSMENT - elevated LFTs - unclear etiology. pt currently asymptomatic. hepatitis panel is pending. pt was on statin, this is held will get liver w/u. pt and very anxious to go home - atypical CP - stress test negative PLAN - liver w/u - rck LFTs in am - if LFTs not going up, he can be d/c tomorrow from GI standpoint - f/u in office with GI - heart healthy diet pt seen by myself and Dr Dwyer and this note is on his behalf (Maude Valdivia) Physician Comments Seen and examined, plan as above. Thank you for the consult. (Eli Dwyer MD) Maude Valdivia Nov 01, 2017 13:04 Eli Dwyer MD Nov 02, 2017 06:14
[2017-11-01 13:45] LABS: TROPONIN I 0.06 NG/ML (0.02-0.05)
[2017-11-01 13:53] LABS: HEPATITIS A AB IGM NEGATIVE (NEGATIVE); HEPATITIS B CORE AB IGM NEGATIVE (NEGATIVE)
[2017-11-01 17:21] VITALS: BP 204/94; PULSE 75; RESP 18; TEMP 97.6; O2SAT 95
--- NOTE | 2017-11-01 18:27 | EKG ---
Date Performed: 11/01/2017 Time Performed: 04:51:23 PTAGE: 87 years EKG: Sinus rhythm LEFT AXIS DEVIATION LEFT VENTRICULAR HYPERTROPHY POSSIBLE SEPTAL MYOCARDIAL INFARCTION NONSPECIFIC T WAVE ABNORMALITY NO PREVIOUS TRACING DOCTOR: Rafael De La Cruz Interpretating Date/Time 11/01/2017 18:26:41
[2017-11-01 20:00] VITALS: BP 179/78; PULSE 71; PULSE 73; RESP 18; TEMP 99.2; O2SAT 94
[2017-11-01] MEDS: HEPARIN SODIUM - SQ 10,000 UNITS/ML VIAL SQ SCH (21:00)
[2017-11-01] MEDS ORDERED: ATORVASTATIN 10 MG TAB PO SCH (21:00)
--- NOTE | 2017-11-01 21:18 | EKG ---
Date Performed: 10/31/2017 Time Performed: 21:47:24 PTAGE: 87 years EKG: SINUS BRADYCARDIA LEFT AXIS DEVIATION LEFT VENTRICULAR HYPERTROPHY NONSPECIFIC ST/T CHANGES ABNORMAL ECG NO PREVIOUS TRACING DOCTOR: Rafael De La Cruz Interpretating Date/Time 11/01/2017 21:18:08
[2017-11-02] VITALS: BP 174/79; PULSE 72; PULSE 81; RESP 18; TEMP 98.6; O2SAT 91
[2017-11-02 04:00] VITALS: BP 160/79; PULSE 70; PULSE 71; RESP 18; TEMP 98.2; O2SAT 91
[2017-11-02 04:42] LABS: BACTERIA, URINE RARE /hpf; BILIRUBIN, URINE NEG (NEG); BLOOD, URINE NEG (NEG); GLUCOSE,URINE NEG (NEG); KETONE, URINE NEG (NEG); NITRITE,URINE NEG (NEG); SQUAMOUS EPITHELIAL CELL URINE <1 /hpf (0-5); URINE COLOR YELLOW (YELLW/STRAW); URINE LEUKOCYTE ESTERASE NEG (NEG)
[2017-11-02 07:48] LABS: AUTOMATED NEUTROPHIL # 5.3 TH/MM3 (1.8-7.7); BASOPHIL % 0.5 % (0.0-2.0); EOSINOPHIL # 0.1 TH/MM3 (0-0.4); EOSINOPHIL % 1.7 % (0.0-4.0); HEMATOCRIT 36.5 % (39.0-51.0); HEMOGLOBIN 12.5 GM/DL (13.0-17.0); LYMPH % 11.9 % (9.0-44.0); LYMPHOCYTE # 0.8 TH/MM3 (1.0-4.8); MEAN CELL VOLUME 91.3 FL (80.0-100.0); MEAN CORPUSCULAR HEMOGLOBIN 31.3 PG (27.0-34.0); MEAN CORPUSCULAR HGB CONC 34.3 % (32.0-36.0); MEAN PLATELET VOLUME 8.8 FL (7.0-11.0); MONO % 10.6 % (0.0-8.0); MONOCYTE # 0.7 TH/MM3 (0-0.9); NEUT % 75.3 % (16.0-70.0); PLATELET COUNT 118 TH/MM3 (150-450); RED BLOOD COUNT 3.99 MIL/MM3 (4.50-5.90); RED CELL DISTRIBUTION WIDTH 14.6 % (11.6-17.2)
[2017-11-02 07:57] LABS: ALBUMIN 3.2 GM/DL (3.4-5.0); AST (GOT) 98 U/L (15-37); BLOOD UREA NITROGEN 18 MG/DL (7-18); CALCIUM 8.1 MG/DL (8.5-10.1); CHLORIDE 102 MEQ/L (98-107); CREATININE 1.28 MG/DL (0.60-1.30); GLOMERULAR FILTRATION RATE 53 ML/MIN (>89); GLUCOSE,RANDOM 97 MG/DL (74-106); SODIUM (NA) 135 MEQ/L (136-145)
[2017-11-02 07:58] LABS: BICARBONATE 26.2 MEQ/L (21.0-32.0)
[2017-11-02 08:00] VITALS: BP 133/63; PULSE 73; RESP 18; TEMP 98; O2SAT 94
[2017-11-02 08:08] LABS: % SATURATION IRON PROFILE 16.1 % (20-50); ALKALINE PHOSPHATASE 146 U/L (45-117); ALT (GPT) 231 U/L (12-78); FERRITIN 142 NG/ML (26-388); IRON (FE) 45 MCG/DL (65-175); TOTAL IRON BINDING CAPACITY 280 MCG/DL (250-450); TOTAL PROTEIN 7.2 GM/DL (6.4-8.2)
[2017-11-02 08:11] LABS: ACETAMINOPHEN LESS THAN 2.0 MCG/ML (10.0-30.0)
[2017-11-02] MEDS: ASPIRIN 81 MG CHEW TAB CHEW SCH (09:05)
[2017-11-02] MEDS: HEPARIN SODIUM - SQ 10,000 UNITS/ML VIAL SQ SCH (09:05)
[2017-11-02] MEDS: PANTOPRAZOLE SOD 40 MG DELAYED RELEASE TAB PO SCH (09:05)
[2017-11-02] MEDS: METOPROLOL SUCCINATE 25 MG EXTENDED RELEASE TAB PO SCH (09:05)
[2017-11-02] MEDS: SODIUM CHLORIDE 0.9% FLUSH 10 ML FLUSH IV FLUSH SCH (09:06)
[2017-11-02 09:15] VITALS: PULSE 56
--- NOTE | 2017-11-02 09:28 | HHI.PR ---
Subjective Remarks in no acute distress. resting comfortably. denies pain. d/w the RN and no acute issues over night. family at the bedside. Objective Vitals Vital Signs Date Time Temp Pulse Resp B/P (MAP) Pulse Ox O2 Delivery O2 Flow Rate FiO2 11/02/17 08:00 98.0 73 18 133/63 (86) 94 11/02/17 04:00 70 11/02/17 04:00 98.2 71 18 160/79 (106) 91 11/02/17 00:00 72 11/02/17 00:00 98.6 81 18 174/79 (110) 91 11/01/17 20:00 99.2 71 18 179/78 (111) 94 11/01/17 20:00 73 11/01/17 17:21 97.6 75 18 204/94 (130) 95 11/01/17 15:59 11/01/17 12:59 97.9 72 15 176/86 (116) 94 Room Air I/O 11/01/17 11/01/17 11/01/17 11/02/17 11/02/17 11/02/17 07:00 15:00 23:00 07:00 15:00 23:00 # Voids 3 Result Diagram: 11/02/17 0644 11/02/17 0644 Imaging Last Impressions Myocardial Perfusion Scan Nuc Med 11/01/17 0000 Signed Impressions: Service Date/Time: October 09:40 - CONCLUSION: Unremarkable myocardial perfusion exam RISK CATEGORY: Low López Gomez MD Head CT 11/01/17 0000 Signed Impressions: Service Date/Time: October 03:12 - CONCLUSION: 1. No acute intracranial abnormality is identified. 2. Chronic changes include generalized atrophy and severe periventricular white matter low attenuation characteristic of chronic microvascular ischemia. There is encephalomalacia in the right occipital lobe. Oracio Medrano MD Gall Bladder Ultrasound 11/01/17 0000 Signed Impressions: Service Date/Time: October 08:06 - CONCLUSION: 1. Small gallbladder polyps versus non-shadowing adherent stones in the gallbladder neck. Gallbladder otherwise appears unremarkable by ultrasound. 2. Atrophic appearance of the right kidney similar to recent CT exam. Mejia Hardin MD Abdomen/Pelvis CT 11/01/17 0000 Signed Impressions: Service Date/Time: October 01:35 - CONCLUSION: 1. No acute finding is identified to explain the clinical symptoms. 2. Nonacute findings include small hiatal hernia, atrophic right kidney, sigmoid diverticulosis, and severe atherosclerotic disease and coronary artery calcification. 3. There is a 4 mm pulmonary nodule in the right lower lobe. Oracio Medrano MD Chest X-Ray 10/31/176 Signed Impressions: Service Date/Time: Tuesday, October 31, 2017 22:32 - CONCLUSION: The lungs are clear. Benitez Gates MD Objective Remarks GENERAL: This is a well-nourished, well-developed patient, in no apparent distress. CARDIOVASCULAR: Regular rate and regular rhythm without murmurs, gallops, or rubs. RESPIRATORY: Clear to auscultation. Breath sounds equal bilaterally. No wheezes , rales, or rhonchi. GASTROINTESTINAL: Abdomen soft, non-tender, nondistended. Normal, active bowel sounds MUSCULOSKELETAL: Extremities without clubbing, cyanosis, or edema. NEURO: Alert & Oriented x4 to person, place, time, situation. Moves all ext x4 Procedures None Medications and IVs Inpatient Medications Acetaminophen (Tylenol) 650 mg Q6H PRN PO HEADACHE OR TEMP > 101 F; Start at 04:00 Aspirin (Aspirin Chew) 162 mg DAILY CHEW Last administered on 11/01/17at 11:43; Start 11/01/17 at 09:00 Atorvastatin Calcium (Lipitor) 10 mg HS PO ; Start 11/01/17 at 21:00; Stop at 21:00; Status DC Heparin Sodium (Porcine) (Heparin Inj) 5,000 units Q12HR SQ ; Start 11/01/17 at 21:00 Heparin Sodium/ Dextrose 250 ml @ 10 mls/hr TITRATE PRN IV Coagulation Management Last administered on 11/01/17at 04:43; Start 11/01/17 at 04:00; Stop 11/01/17 at 12:24; Status DC Lisinopril (Prinivil) 10 mg HS PO Last administered on 11/01/17at 21:02; Start at 21:00 Metoprolol Succinate (Toprol Xl) 12.5 mg DAILY PO Last administered on at 11:44; Start 11/01/17 at 09:15 Metoprolol Tartrate (Lopressor) 25 mg DAILY PO ; Start 11/01/17 at 09:00; Stop at 09:12; Status DC Miscellaneous (Pill Splitter) 1 ea UNSCH PRN OTHER SEE LABEL COMMENTS; Start at 09:30 Morphine Sulfate (Morphine Inj) 2 mg Q3H PRN IV PUSH SEVERE PAIN; Start at 04:15 Ondansetron HCl (Zofran Inj) 4 mg Q6H PRN IV PUSH NAUSEA OR VOMITING; Start 11/01/17 at 04:00 Pantoprazole Sodium (Protonix) 40 mg DAILY PO Last administered on 11/01/17at 11: 44; Start 11/01/17 at 09:00 Sodium Chloride (NS Flush) 2 ml UNSCH PRN IV FLUSH FLUSH AFTER USING IV ACCESS ; Start 11/01/17 at 04:00 Tamsulosin HCl (Flomax) 0.4 mg HS PO Last administered on 11/01/17at 21:02; Start 11/01/17 at 21:00 A/P Assessment and Plan 1. chest pain. Patient has been evaluated by cardiology. Nuclear stress test with no ischemia. Continue aspirin, beta-adrián. f/u with cardiology as outpatient. 2. Transaminitis: Patient has elevated LFTs. CT of the abdomen and pelvis is negative. LFT's improving- GI consult appreciated; f/u as outpatient. 3. Agitation/confusion: Likely related to non-ST elevation [place]. CT head negative. Patient apparently has some baseline confusion. 4. Acute kidney injury: No prior labs available for comparison. improved. 5. Hypertension: Continue home medications. 6. GERD: PPI. Discharge Planning had a lengthy discussion with the family at the bedside. PT evaluation was offered but the family declined. will dc home with f/u with pcp, cardiology and GI. see med list. d/w the RN. time spent 35 min. Valeriy Tao MD Nov 02, 2017 09:28
--- NOTE | 2017-11-02 09:31 | HHI.DS ---
Discharge Summary Admission Date Nov 01, 2017 at 03:59 Discharge Date: Nov 02, 2017 Admitting Diagnosis near syncope and LFT abnl (1) Elevated liver enzymes ICD Code: R74.8 - Abnormal levels of other serum enzymes Diagnosis: Principal Status: Acute (2) Chest pain ICD Code: R07.9 - Chest pain, unspecified Diagnosis: Principal Procedures None Brief History - From Admission 87-year-old male with a past medical history significant for coronary artery disease, hypertension, hyperlipidemia, GERD and anxiety presents to the emergency department via EMS for evaluation of confusion, agitation and chest pain. The patient's states that the patient awoke from sleep and requested a cup of coffee. He then returned to his bedroom where he oscillated between the bed in the chair in an agitated fashion. During that time the patient's reports that he was hyperventilating and appeared to be confused. He had a 2-3 second episode of shaking throughout his entire body that was not followed by confusion. The patient's daughter reports that he return to baseline within 5 minutes. Upon further questioning, the patient states that he had a 20 minute episode of substernal, nonradiating chest pain/ pressure. He states that his chest pain is now resolved. He endorses accompanying shortness of breath. Denies nausea/vomiting/diarrhea. Denies any lateralizing signs/symptoms. CBC/BMP: 11/02/17 0644 11/02/17 0644 Significant Findings Laboratory Tests Test 10/31/17 22:45 11/01/17 02:00 11/01/17 04:30 11/01/17 14:11 Red Blood Count 4.21 MIL/MM3 (4.50-5.90) Hematocrit 38.8 % (39.0-51.0) Platelet Count 143 TH/MM3 (150-450) Neutrophils (%) (Auto) 85.1 % (16.0-70.0) Neutrophils # (Auto) 8.9 TH/MM3 (1.8-7.7) Activated Partial Thromboplast Time 21.5 SEC (24.3-30.1) 19.9 SEC (24.3-30.1) Blood Urea Nitrogen 20 MG/DL (7-18) Creatinine 1.31 MG/DL (0.60-1.30) Random Glucose 107 MG/DL (74-106) Albumin 3.2 GM/DL (3.4-5.0) Calcium Level 8.0 MG/DL (8.5-10.1) Alkaline Phosphatase 172 U/L (45-117) Aspartate Amino Transf (AST/SGOT) 595 U/L (15-37) Alanine Aminotransferase (ALT/SGPT) 400 U/L (12-78) Estimat Glomerular Filtration Rate 52 ML/MIN (>89) B-Type Natriuretic Peptide 235 PG/ML (0-100) Troponin I 0.06 NG/ML (0.02-0.05) 0.07 NG/ML (0.02-0.05) 0.06 NG/ML (0.02-0.05) Test 11/01/17 16:34 11/02/17 04:20 11/02/17 06:44 Troponin I 0.08 NG/ML (0.02-0.05) Urine RBC 11 /hpf (0-3) Urine Bacteria RARE /hpf (NONE) Red Blood Count 3.99 MIL/MM3 (4.50-5.90) Hemoglobin 12.5 GM/DL (13.0-17.0) Hematocrit 36.5 % (39.0-51.0) Platelet Count 118 TH/MM3 (150-450) Neutrophils (%) (Auto) 75.3 % (16.0-70.0) Monocytes (%) (Auto) 10.6 % (0.0-8.0) Lymphocytes # (Auto) 0.8 TH/MM3 (1.0-4.8) Albumin 3.2 GM/DL (3.4-5.0) Calcium Level 8.1 MG/DL (8.5-10.1) Alkaline Phosphatase 146 U/L (45-117) Aspartate Amino Transf (AST/SGOT) 98 U/L (15-37) Alanine Aminotransferase (ALT/SGPT) 231 U/L (12-78) Sodium Level 135 MEQ/L (136-145) Estimat Glomerular Filtration Rate 53 ML/MIN (>89) Iron Level 45 MCG/DL (65-175) Percent Iron Saturation 16.1 % (20-50) Acetaminophen Level LESS THAN 2.0 MCG/ML Imaging Last Impressions Myocardial Perfusion Scan Nuc Med 11/01/17 Signed Impressions: Service Date/Time: October 09:40 - CONCLUSION: Unremarkable myocardial perfusion exam RISK CATEGORY: Low López Gomez MD Head CT 11/01/17 0000 Signed Impressions: Service Date/Time: October 03:12 - CONCLUSION: 1. No acute intracranial abnormality is identified. 2. Chronic changes include generalized atrophy and severe periventricular white matter low attenuation characteristic of chronic microvascular ischemia. There is encephalomalacia in the right occipital lobe. Oracio Medrano MD Gall Bladder Ultrasound 11/01/17 Signed Impressions: Service Date/Time: October 08:06 - CONCLUSION: 1. Small gallbladder polyps versus non-shadowing adherent stones in the gallbladder neck. Gallbladder otherwise appears unremarkable by ultrasound. 2. Atrophic appearance of the right kidney similar to recent CT exam. Mejia Hardin MD Abdomen/Pelvis CT 11/01/17 Signed Impressions: Service Date/Time: October 01:35 - CONCLUSION: 1. No acute finding is identified to explain the clinical symptoms. 2. Nonacute findings include small hiatal hernia, atrophic right kidney, sigmoid diverticulosis, and severe atherosclerotic disease and coronary artery calcification. 3. There is a 4 mm pulmonary nodule in the right lower lobe. Oracio Medrano MD Chest X-Ray 10/31/[id number] Signed Impressions: Service Date/Time: Tuesday, October 31, 2017 22:32 - CONCLUSION: The lungs are clear. Benitez Gates MD PE at Discharge GENERAL: This is a well-nourished, well-developed patient, in no apparent distress. CARDIOVASCULAR: Regular rate and regular rhythm without murmurs, gallops, or rubs. RESPIRATORY: Clear to auscultation. Breath sounds equal bilaterally. No wheezes , rales, or rhonchi. GASTROINTESTINAL: Abdomen soft, non-tender, nondistended. Normal, active bowel sounds MUSCULOSKELETAL: Extremities without clubbing, cyanosis, or edema. NEURO: Alert & Oriented x4 to person, place, time, situation. Moves all ext x4 Hospital Course 1. chest pain: Patient has been evaluated by cardiology. Nuclear stress test with no ischemia. Continue aspirin, beta-adrián. f/u with cardiology as outpatient. 2. Transaminitis: Patient has elevated LFTs. CT of the abdomen and pelvis is negative. LFT's improving- GI consult appreciated; f/u as outpatient. 3. Agitation/confusion: Likely related to non-ST elevation [place]. CT head negative. Patient apparently has some baseline confusion. 4. Acute kidney injury: No prior labs available for comparison. improved. 5. Hypertension: Continue home medications. 6. GERD: PPI. Pt Condition on Discharge: Fair Discharge Disposition: Disch w/ Home Health Serv Discharge Time: > 30 minutes Discharge Instructions DIET: Follow Instructions for: Heart Healthy Diet Activities you can perform: Regular-No Restrictions Valeriy Tao MD Nov 02, 2017 09:31
--- NOTE | 2017-11-02 11:47 | HHI.FF ---
Face to Face Verification Diagnosis: (1) Elevated liver enzymes (2) Chest pain Physical Therapy Order: Evaluate and Treat Home Health Nursing Order: Medical education Signs/symptoms of disease process Medication education-adverse effect Nursing assessment with vital signs I have seen patient Henri Denis on 11/02/17. My clinical findings support the need for the requested home health care services because: Ltd mobility - disease progression I certify that my clinical findings support that this patient is homebound because: Unsteady gait/balance Valeriy Tao MD Nov 02, 2017 11:47
[2017-11-03 14:18] LABS: SMOOTH MUSCLE TOTAL AUTOABS Negative (Negative)
[2017-11-03 15:02] LABS: ALPHA-1-ANTITRYPSIN 189 mg/dL (100 - 190)
[2017-11-05 11:52] LABS: CERULOPLASMIN 26 mg/dL (18-36)
[2017-11-06 23:54] LABS: MITOCHONDRIAL ABS LESS THAN 20.0 U (<=20.0)
== END 2017-11-02 14:26 | disposition home health service (06) | DRG 313 ==
LOC: NEPE 21:36 → NEDA 11-01 02:37 → OBSVTOIN 11-01 03:59 → NEDH 11-01 14:10 → N05A 11-01 16:00
PROVIDERS: ADMIT Internal Medicine; ATTEND Internal Medicine
DX: R07.89 Other chest pain (principal); I25.10 Atherosclerotic heart disease of native coronary artery without angina pectoris; N17.9 Acute kidney failure, unspecified; Z95.1 Presence of aortocoronary bypass graft; Z95.3 Presence of xenogenic heart valve; R55 Syncope and collapse; I10 Essential (primary) hypertension; R79.89 Other specified abnormal findings of blood chemistry; R41.0 Disorientation, unspecified; K21.9 Gastro-esophageal reflux disease without esophagitis; E78.5 Hyperlipidemia, unspecified; R74.0 Nonspecific elevation of levels of transaminase and lactic acid dehydrogenase [LDH]; Z86.711 Personal history of pulmonary embolism; Z79.82 Long term (current) use of aspirin; Z90.49 Acquired absence of other specified parts of digestive tract; Z86.73 Personal history of transient ischemic attack (TIA), and cerebral infarction without residual deficits; Z85.038 Personal history of other malignant neoplasm of large intestine
CPT/HCPCS: 70450; 71046; 74176; 76705; 78452; 80053; 80074; 80307; 81001; 82103; 82105; 82390; 82550; 82552; 82728; 83520; 83540; 83550; 83735; 83880; 84484; 85025; 85610; 85730; 86038; 86255; 87086; 93005; 93017; 99285; A9502; J1644; J2785

== ENCOUNTER 2017-11-11 18:02 | Emergency (ER) | payer MEDICARE, OTHER ==
[~2017-11-11] VITALS: Ht 177.8 cm; Wt 83.8 kg
[~2017-11-11 18:02] MED LIST changes: +ASPI-516 CHEW; -ASPI81TA11 PO; -ATOR10TA PO; -CO Q100C9 PO; -COUM1TAB PO; -FLUO10TA PO; +LISI10TA3 PO; +METO25TA3 PO; +OMEP40CA2 PO; -PACE200T4 PO; -PRIN5TAB PO; +RAPA8CAP PO; -TOPR50TA PO
[2017-11-11 18:12] VITALS: BP 116/57; PULSE 69; RESP 16; TEMP 98.6; O2SAT 96
[2017-11-11] MEDS ORDERED: SODIUM CHLORIDE 0.9% FLUSH 10 ML FLUSH IV FLUSH PRN (18:45)
[2017-11-11] MEDS ORDERED: ESCI10TA PO (18:46)
[2017-11-11] MEDS ORDERED: BIOFTAB PO (18:46)
[2017-11-11] MEDS ORDERED: CIPR250T52 PO (18:46)
[2017-11-11] MEDS ORDERED: METO1TAB42 PO (18:46)
[2017-11-11] MEDS ORDERED: DONE5TAB7 PO (18:46)
[2017-11-11 18:48] LABS: BILIRUBIN, URINE NEG (NEG); BLOOD, URINE NEG (NEG); GLUCOSE,URINE 250 mg/dL (NEG); KETONE, URINE 15 mg/dL (NEG); NITRITE,URINE POS (NEG); URINE LEUKOCYTE ESTERASE TRACE (NEG)
--- NOTE | 2017-11-11 18:48 | PD ---
HPI . Urinary symptoms Chief Complaint: Complaint Time Seen by Provider: 18:20 Travel History International Travel<30 days: No Contact w/Intl Traveler<30days: No Traveled to known affect area: No History of Present Illness HPI This patient presents with the chief complaint of urinary symptoms and the secondary complaint of constipation. The patient was hospitalized 10/31-11/02 for evaluation of syncope and confusion. He had a catheter urine done the day of discharge. He was subsequently discharged on Cipro. He has had symptoms of a urinary tract infection since that time. That is, the symptoms started after the catheterization. He has had dysuria, frequency, urgency and very little urine volume. He has been taking AZO without relief of his symptoms. His symptoms have been getting progressively worse. He has not been running a fever. He has not had any nausea or vomiting. He does not have any back pain. In addition, the patient states he cannot move his bowels. PFSH Past Medical History Hx Anticoagulant Therapy: Yes (asa 81mg) Anxiety: Yes Cardiovascular Problems: Yes (htn on meds) Cerebrovascular Accident: Yes (cva) Coronary Artery Disease: Yes Hypertension: Yes Respiratory: Yes (PE'S) Past Surgical History Appendectomy: Yes Cardiac Surgery: Yes (QUAD BYPASS) Tonsillectomy: Yes Other Surgery: Yes (OPEN HEART) Social History Alcohol Use: No Tobacco Use: No Substance Use: No Allergies-Medications (Allergen,Severity, Reaction): Coded Allergies: No Known Allergies (Unverified Allergy, Unknown, 11/11/17) Reported Meds & Prescriptions Reported Meds & Active Scripts Active Pyridium (Phenazopyridine HCl) 100 Mg Tab 100 Mg PO Q8H PRN Keflex (Cephalexin) 500 Mg Capsule 500 Mg PO Q6H 28 Days Reported Donepezil 5 Mg Tab 5 Mg PO DAILY Bioflex (Bioflavonoid Products) 1 Tab 1 Tab PO BID Metoprolol Succinate ER 24 HR (Metoprolol Succinate) 25 Mg Tab 12.5 Mg PO DAILY Escitalopram (Escitalopram Oxalate) 10 Mg Tab 10 Mg PO DAILY Cipro (Ciprofloxacin HCl) 250 Mg Tab 250 Mg PO BID Rapaflo (Silodosin) 8 Mg Cap 8 Mg PO DAILY Lisinopril 10 Mg Tab 10 Mg PO DAILY Aspirin 81 Mg Chew 81 Mg CHEW DAILY Omeprazole 40 Mg Cap 40 Mg PO DAILY Review of Systems Except as stated in HPI: all other systems reviewed are Neg General / Constitutional: No: Fever, Chills Gastrointestinal: Positive: Constipation, No: Nausea, Vomiting, Diarrhea Genitourinary: Positive: Urgency, Frequency, Dysuria, Decreased Urinary Output , No: Flank Pain Physical Exam Narrative GENERAL: Awake and alert and in no acute distress. Hard of hearing. SKIN: Warm and dry. Normal color. HEAD: Normocephalic/atraumatic. EYES: Pupils are equal. Extraocular movements are intact. 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 NECK: Normal range of motion. CARDIOVASCULAR: Regular rate and rhythm. RESPIRATORY: Nonlabored respirations. ABDOMEN: Soft and nontender. : No CVA tenderness. MUSCULOSKELETAL: Atraumatic. NEUROLOGICAL: Nonfocal. PSYCHIATRIC: Appropriate mood and affect. Data Data Last Documented VS Vital Signs Date Time Temp Pulse Resp B/P (MAP) Pulse Ox O2 Delivery O2 Flow Rate FiO2 11/11/17 18:36 70 18 11/11/17 18:12 98.6 116/57 (76) 96 Orders Orders Urinalysis - C+S If Indicated (11/11/17 18:06) Complete Blood Count With Diff (11/11/17 18:36) Comprehensive Metabolic Panel (11/11/17 18:36) Ct Abd/Pel W Iv Contrast(Rout) (11/11/17 18:36) Iv Access Insert/Monitor (11/11/17 18:36) Sodium Chloride 0.9% Flush (Ns Flush) (11/11/17 18:45) Urine Culture (11/11/17 18:33) Iohexol 350 Inj (Omnipaque 350 Inj) (11/11/17 20:09) Ed Discharge Order (11/11/17 21:59) Cephalexin (Keflex) (11/11/17 22:00) Labs Laboratory Tests Test 11/11/17 18:33 11/11/17 18:53 Urine Collection Type CLEAN CATCH Urine Color ORANGE Urine Turbidity SL CLOUDY Urine pH 5.0 Urine Specific [place] GREATER/EQUAL 1.030 Urine Protein 300 OR GREATER mg/dL Urine Glucose (UA) 250 mg/dL Urine Ketones 15 mg/dL Urine Occult Blood NEG Urine Nitrite POS Urine Bilirubin NEG Urine Urobilinogen GREATER/EQUAL 8.0 MG/DL Urine Leukocyte Esterase TRACE Urine RBC 0-3 /hpf Urine WBC 6-8 /hpf Urine Squamous Epithelial Cells 0-5 /hpf Urine Amorphous Sediment SMALL Urine Hyaline Casts 0-2 /lpf Urine Fine Granular Casts 0-2 /lpf Urine Mucus FEW /lpf Microscopic Urinalysis Comment CULTURE INDICATED White Blood Count 12.1 TH/MM3 Red Blood Count 4.05 MIL/MM3 Hemoglobin 12.2 GM/DL Hematocrit 37.0 % Mean Corpuscular Volume 91.3 FL Mean Corpuscular Hemoglobin 30.1 PG Mean Corpuscular Hemoglobin Concent 32.9 % Red Cell Distribution Width 14.1 % Platelet Count 351 TH/MM3 Mean Platelet Volume 8.2 FL Neutrophils (%) (Auto) 79.9 % Lymphocytes (%) (Auto) 11.1 % Monocytes (%) (Auto) 7.3 % Eosinophils (%) (Auto) 1.0 % Basophils (%) (Auto) 0.7 % Neutrophils # (Auto) 9.7 TH/MM3 Lymphocytes # (Auto) 1.3 TH/MM3 Monocytes # (Auto) 0.9 TH/MM3 Eosinophils # (Auto) 0.1 TH/MM3 Basophils # (Auto) 0.1 TH/MM3 CBC Comment DIFF FINAL Differential Comment Blood Urea Nitrogen 16 MG/DL Creatinine 1.20 MG/DL Random Glucose 96 MG/DL Total Protein 7.9 GM/DL Albumin 2.7 GM/DL Calcium Level 8.5 MG/DL Alkaline Phosphatase 83 U/L Aspartate Amino Transf (AST/SGOT) 66 U/L Alanine Aminotransferase (ALT/SGPT) 40 U/L Total Bilirubin 0.4 MG/DL Sodium Level 137 MEQ/L Potassium Level 3.4 MEQ/L Chloride Level 103 MEQ/L Carbon Dioxide Level 27.3 MEQ/L Anion Gap 7 MEQ/L Estimat Glomerular Filtration Rate 58 ML/MIN [facility] Medical Decision Making Medical Screen Exam Complete: Yes Emergency Medical Condition: Yes Medical Record Reviewed: Yes (patient was recently admitted for syncope and confusion/agitation. He had a thorough evaluation and his symptoms were attributed to a non-STEMI. His troponin became minimally elevated while he was in the hospital. He had a catheter urine done prior to discharge which had a few red cells in it. He was reportedly subsequently discharged on Cipro. His medical history includes HTN, HL, CVA, CAD, colon CA. LFTs were elevated during this hospitalization.) Differential Diagnosis Final differential diagnosis of urinary symptoms includes but is not limited to UTI, kidney stone, pyelonephritis, bacterial vaginosis, yeast infection, urinary retention Differential diagnosis of constipation includes medication effect, irritable bowel syndrome, inadequate fiber, bowel obstruction Narrative Course This patient presents with a chief complaint of urinary symptoms and the secondary complaint of constipation. His past medical history is concerning. He has a history of HTN, HL, CVA, CAD, colon CA. because of all of these underlying medical problems, I have ordered labs and a CT of his abdomen and pelvis. The nurses just told me that the patient had been on medications for BPH. His thought that maybe he kept getting urinary tract infections because of the medication. She has stopped it. Care was turned over to Dr. Cohen at change of shift. Scripts Phenazopyridine (Pyridium) 100 Mg Tab 100 MG PO Q8H Y for DYSURIA, #6 TAB 0 Refills Prov: Xiomy Cohen MD 11/11/17 Cephalexin (Keflex) 500 Mg Capsule 500 MG PO Q6H for Infection for 28 Days, #112 CAP 0 Refills Prov: Xiomy Cohen MD 11/11/17 Condition: Stable Yanna Lindsay MD Nov 11, 2017 18:48
[2017-11-11 19:07] LABS: URINE COLOR ORANGE (YELLW/STRAW)
--- NOTE | 2017-11-11 19:14 | PD ---
Physical Exam Date Seen by Provider: Nov 11, 2017 Time Seen by Provider: 19:13 Narrative Accepted in transfer of care from Dr. Lindsay Data Data Last Documented VS Vital Signs Date Time Temp Pulse Resp B/P (MAP) Pulse Ox O2 Delivery O2 Flow Rate FiO2 11/11/17 18:36 70 18 11/11/17 18:12 98.6 116/57 (76) 96 Orders Orders Urinalysis - C+S If Indicated (11/11/17 18:06) Complete Blood Count With Diff (11/11/17 18:36) Comprehensive Metabolic Panel (11/11/17 18:36) Ct Abd/Pel W Iv Contrast(Rout) (11/11/17 18:36) Iv Access Insert/Monitor (11/11/17 18:36) Sodium Chloride 0.9% Flush (Ns Flush) (11/11/17 18:45) Urine Culture (11/11/17 18:33) Iohexol 350 Inj (Omnipaque 350 Inj) (11/11/17 20:09) Ed Discharge Order (11/11/17 21:59) Cephalexin (Keflex) (11/11/17 22:00) Labs Laboratory Tests Test 11/11/17 18:33 11/11/17 18:53 Urine Collection Type CLEAN CATCH Urine Color ORANGE Urine Turbidity SL CLOUDY Urine pH 5.0 Urine Specific [place] GREATER/EQUAL 1.030 Urine Protein 300 OR GREATER mg/dL Urine Glucose (UA) 250 mg/dL Urine Ketones 15 mg/dL Urine Occult Blood NEG Urine Nitrite POS Urine Bilirubin NEG Urine Urobilinogen GREATER/EQUAL 8.0 MG/DL Urine Leukocyte Esterase TRACE Urine RBC 0-3 /hpf Urine WBC 6-8 /hpf Urine Squamous Epithelial Cells 0-5 /hpf Urine Amorphous Sediment SMALL Urine Hyaline Casts 0-2 /lpf Urine Fine Granular Casts 0-2 /lpf Urine Mucus FEW /lpf Microscopic Urinalysis Comment CULTURE INDICATED White Blood Count 12.1 TH/MM3 Red Blood Count 4.05 MIL/MM3 Hemoglobin 12.2 GM/DL Hematocrit 37.0 % Mean Corpuscular Volume 91.3 FL Mean Corpuscular Hemoglobin 30.1 PG Mean Corpuscular Hemoglobin Concent 32.9 % Red Cell Distribution Width 14.1 % Platelet Count 351 TH/MM3 Mean Platelet Volume 8.2 FL Neutrophils (%) (Auto) 79.9 % Lymphocytes (%) (Auto) 11.1 % Monocytes (%) (Auto) 7.3 % Eosinophils (%) (Auto) 1.0 % Basophils (%) (Auto) 0.7 % Neutrophils # (Auto) 9.7 TH/MM3 Lymphocytes # (Auto) 1.3 TH/MM3 Monocytes # (Auto) 0.9 TH/MM3 Eosinophils # (Auto) 0.1 TH/MM3 Basophils # (Auto) 0.1 TH/MM3 CBC Comment DIFF FINAL Differential Comment Blood Urea Nitrogen 16 MG/DL Creatinine 1.20 MG/DL Random Glucose 96 MG/DL Total Protein 7.9 GM/DL Albumin 2.7 GM/DL Calcium Level 8.5 MG/DL Alkaline Phosphatase 83 U/L Aspartate Amino Transf (AST/SGOT) 66 U/L Alanine Aminotransferase (ALT/SGPT) 40 U/L Total Bilirubin 0.4 MG/DL Sodium Level 137 MEQ/L Potassium Level 3.4 MEQ/L Chloride Level 103 MEQ/L Carbon Dioxide Level 27.3 MEQ/L Anion Gap 7 MEQ/L Estimat Glomerular Filtration Rate 58 ML/MIN [facility] Medical Record Reviewed: Yes Supervised Visit with RENATO: No Differential Diagnosis Accepted in transfer of care from Dr. Lindsay; please refer to her dictation Narrative Course Accepted in transfer of care from Dr. Lindsay; follow up labs and disposition Diagnosis Primary Impression: Cystitis Referrals: Primary Care Physician 1 day Patient Instructions: General Instructions Additional Instruction: Increase fluid hydration May administer Benadryl 25 maximum 50 mg at bedtime 1 dose to help with sleeping Monitor temperature for fever take acetaminophen/Tylenol every 4 hours as needed for fever 100.4F or greater Complete course of antibiotic as prescribed May use prescription Pyridium as needed for bladder spasm Continue chronic medications as chronically prescribed Follow-up with primary care provider May follow up with [place] case management [phone] Return to the emergency department for any concerns or change in condition Med/Other Pt SpecificInfo: Prescription(s) given Scripts Phenazopyridine (Pyridium) 100 Mg Tab 100 MG PO Q8H Y for DYSURIA, #6 TAB 0 Refills Prov: Xiomy Cohen MD 11/11/17 Cephalexin (Keflex) 500 Mg Capsule 500 MG PO Q6H for Infection for 28 Days, #112 CAP 0 Refills Prov: Xiomy Cohen MD 11/11/17 Condition: Stable Xiomy Cohen MD Nov 11, 2017 19:14
[2017-11-11 19:21] LABS: RBC, URINE 0-3 /hpf (0-3); SQUAMOUS EPITHELIAL CELL URINE 0-5 /hpf (0-5)
[2017-11-11 19:22] LABS: AUTOMATED NEUTROPHIL # 9.7 TH/MM3 (1.8-7.7); BASOPHIL # 0.1 TH/MM3 (0-0.2); BASOPHIL % 0.7 % (0.0-2.0); EOSINOPHIL # 0.1 TH/MM3 (0-0.4); HEMOGLOBIN 12.2 GM/DL (13.0-17.0); LYMPH % 11.1 % (9.0-44.0); LYMPHOCYTE # 1.3 TH/MM3 (1.0-4.8); MEAN CELL VOLUME 91.3 FL (80.0-100.0); MEAN CORPUSCULAR HEMOGLOBIN 30.1 PG (27.0-34.0); MEAN CORPUSCULAR HGB CONC 32.9 % (32.0-36.0); MEAN PLATELET VOLUME 8.2 FL (7.0-11.0); MONO % 7.3 % (0.0-8.0); MONOCYTE # 0.9 TH/MM3 (0-0.9); NEUT % 79.9 % (16.0-70.0); PLATELET COUNT 351 TH/MM3 (150-450); RED BLOOD COUNT 4.05 MIL/MM3 (4.50-5.90); RED CELL DISTRIBUTION WIDTH 14.1 % (11.6-17.2); WHITE BLOOD COUNT 12.1 TH/MM3 (4.0-11.0)
[2017-11-11 19:22] LABS: MUCUS URINE FEW /lpf (OCC)
[2017-11-11 19:23] LABS: HYALINE CAST, URINE 0-2 /lpf (RARE)
[2017-11-11 19:24] LABS: AMORPHOUS SEDIMENT, URINE SMALL
[2017-11-11 19:33] LABS: CHLORIDE 103 MEQ/L (98-107); SODIUM (NA) 137 MEQ/L (136-145)
[2017-11-11 19:37] LABS: ALBUMIN 2.7 GM/DL (3.4-5.0); BICARBONATE 27.3 MEQ/L (21.0-32.0); BLOOD UREA NITROGEN 16 MG/DL (7-18); CALCIUM 8.5 MG/DL (8.5-10.1); GLUCOSE,RANDOM 96 MG/DL (74-106)
[2017-11-11 19:40] LABS: ALT (GPT) 40 U/L (12-78); AST (GOT) 66 U/L (15-37); GLOMERULAR FILTRATION RATE 58 ML/MIN (>89)
[2017-11-11 19:42] LABS: TOTAL BILIRUBIN ADULT 0.4 MG/DL (0.2-1.0); TOTAL PROTEIN 7.9 GM/DL (6.4-8.2)
[2017-11-11 19:43] LABS: ALKALINE PHOSPHATASE 83 U/L (45-117)
[2017-11-11] MEDS ORDERED: IOHEXOL 350 MG/ML 10 ML VIAL (for RAD DIAG) IVCONTRAST ONE (20:09)
--- NOTE | 2017-11-11 20:19 | RADRPT ---
EXAM DATE/TIME: 11/11/2017 19:54 [place] COMPARISON: No previous studies available for comparison. INDICATIONS : Urinary frequency and burning when urinating. IV CONTRAST: 100 cc Omnipaque 350 (iohexol) IV ORAL CONTRAST: No oral contrast ingested. RADIATION DOSE: 14.19 CTDIvol (mGy) MEDICAL HISTORY : Cardiovascular disease. Cerebrovascular disease. Hypertension.Pulmonary embolism. SURGICAL HISTORY : CABG Laminectomy. ENCOUNTER: Initial ACUITY: 2 weeks PAIN SCALE: 4/10 LOCATION: pelvis TECHNIQUE: Volumetric scanning of the abdomen and pelvis was performed. Using automated exposure control and ad justment of the mA and/or kV according to patient size, radiation dose was kept as low as reasonably achievable to obtain optimal diagnostic quality images. DICOM format image data is available electro nically for review and comparison. FINDINGS: There is dependent atelectasis in the lungs. Small hiatal hernia. Liver, spleen, adrenals, left kidne y and pancreas unremarkable. Marked right renal cortical atrophy. As atherosclerotic change proximal right renal artery. No free fluid. No bowel obstruction. The prostate is enlarged. Bladder wall is thickened with small diverticula. Minimal inflammatory gandara ge around the bladder could represent a cystitis. Colonic diverticulosis without diverticulitis. CONCLUSION: Bladder wall thickening with minimal inflammatory changes that could represent a cystitis. Multiple s mall bladder diverticula. Prostate enlarged. Marked right renal cortical atrophy. Hiatal hernia. Colonic diverticulosis. Small fat containing umbi lical hernia. Tee Bravo MD on November 11, 2017 at 20:14 Board Certified Radiologist. This report was verified electronically.
[2017-11-11] MEDS ORDERED: PHEN0.4T PO (21:58)
[2017-11-11] MEDS ORDERED: CEPH-460 PO (21:58)
[2017-11-11] MEDS ORDERED: CEPHALEXIN MONOHYDRATE 500 MG CAP PO ONE (22:00)
== END 2017-11-11 23:35 | disposition home or self-care (01) ==
LOC: PHED 18:02
DX: N30.90 Cystitis, unspecified without hematuria (principal); K59.00 Constipation, unspecified; R39.15 Urgency of urination; I10 Essential (primary) hypertension; Z79.82 Long term (current) use of aspirin
CPT/HCPCS: 74177; 80053; 81001; 85025; 87086; 99285; Q9967